=== PATIENT | female | born 1955 | race African-American/Black ===

== ENCOUNTER 2017-08-20 11:50 | Outpatient (CLI) | payer BC | END 2017-08-20 11:51 | disposition home or self-care (01) | LOC: BICRAD 11:50 | PROVIDERS: ATTEND Internal Medicine | DX: J45.909 Unspecified asthma, uncomplicated (principal); Z72.0 Tobacco use | CPT/HCPCS: 71046 ==

== ENCOUNTER 2017-12-05 08:37 | Outpatient (CLI) | payer BC | END 2017-12-05 08:38 | disposition home or self-care (01) | LOC: CP 08:37 | PROVIDERS: ATTEND Internal Medicine Critical Care Medicine | DX: J44.9 Chronic obstructive pulmonary disease, unspecified (principal) | CPT/HCPCS: 94010; 94727; 94729 ==

== ENCOUNTER 2018-02-11 13:47 | Outpatient (CLI) | payer OTHER | END 2018-02-11 13:48 | disposition home or self-care (01) | LOC: BICRAD 13:47 | PROVIDERS: ATTEND Internal Medicine | DX: Z02.71 Encounter for disability determination (principal); M19.012 Primary osteoarthritis, left shoulder; M17.12 Unilateral primary osteoarthritis, left knee ==

== ENCOUNTER 2019-06-03 11:39 | Outpatient (CLI) | payer BC ==
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
== END 2019-06-03 11:40 | disposition home or self-care (01) ==
LOC: BICRAD 11:39
PROVIDERS: ATTEND Internal Medicine
DX: M54.2 Cervicalgia (principal); M46.92 Unspecified inflammatory spondylopathy, cervical region
CPT/HCPCS: 72040

== ENCOUNTER 2019-12-08 16:42 | Emergency (ER) | payer MEDICARE ==
[2019-12-08 17:45] LABS: #Basophils 0.1 thou/uL (0.0-0.2); #Eosinphils 0.1 thou/uL (0.0-0.7); #Lymphocytes 2.8 thou/uL (1.20-3.40); #Monocytes 0.8 thou/uL (0.11-0.59); #Neutrophils 8.4 thou/uL (1.40-6.50); %Basophils 0.6 % (0.0-1.0); %Eosinophils 0.5 % (0.0-10.0); %Monocytes 6.3 % (0.0-10.0); %Neutrophils 69.6 % (42.0-75.0); Hemoglobin 13.4 g/dL (12.0-16.0); Mean Corpuscular HGB CONC 30.7 g/dL (32.0-36.0); Mean Corpuscular Hemoglobin 27.8 pg (27.0-31.0); Mean Corpuscular Volume 90.5 fL (78.0-98.0); Platelet Count 322 thou/uL (130-400); RBC Distribution Width 14.2 % (11.5-14.5); Red Blood Cell (RBC) Count 4.82 mill/uL (4.20-5.40); White Blood Cell (WBC) Count 12.1 thou/uL (4.8-10.8)
[2019-12-08 18:08] LABS: ALT (SGPT) 40 U/L (8-55); AST (SGOT) 21 U/L (5-34); Albumin 4.1 g/dL (3.4-4.8); Alkaline Phosphatase 129 U/L (40-110); Anion Gap 21 mmol/L (10-20); BUN (Urea Nitrogen) 11 mg/dL (9.8-20.1); Bilirubin, Total 0.2 mg/dL (0.2-1.2); Calc. Creatinine Clearance 0 mL/min (70-130); Calcium 9.6 mg/dL (7.8-10.44); Carbon Dioxide 22 mmol/L (23-31); Chloride 92 mmol/L (98-107); Estimated GFR-MDRD 41; Globulin 2.8 g/dL (2.4-3.5); Lipase 50 U/L (8-78); Potassium 4.6 mmol/L (3.5-5.1); Protein, Total 6.9 g/dL (6.0-8.3); Sodium 130 mmol/L (136-145)
[2019-12-08 18:18] LABS: Glucose 728 mg/dL (80-115)
[2019-12-08 18:29] LABS: Bilirubin Negative (Negative); Blood, Urine Negative (Negative); Clarity Clear (Clear); Glucose, Urine (Dipstick) Greater than 1000 mg/dL (Negative); Leukocyte Negative Leu/uL (Negative); Nitrite Negative (Negative); Protein, Urine (Dipstick) Negative (Neg-Trace); Urobilinogen Normal mg/dL (Less than 2)
[2019-12-08] MEDS ORDERED: Insulin Regular 300 UNITS/3 ML VIAL ONE (18:34)
== END 2019-12-08 22:41 | disposition home or self-care (01) ==
LOC: ERS 16:42
DX: E11.65 Type 2 diabetes mellitus with hyperglycemia (principal); E78.00 Pure hypercholesterolemia, unspecified; I10 Essential (primary) hypertension; G89.29 Other chronic pain; F31.9 Bipolar disorder, unspecified; F17.210 Nicotine dependence, cigarettes, uncomplicated; Z79.899 Other long term (current) drug therapy
CPT/HCPCS: 36415; 36416; 80053; 80061; 81003; 82010; 82043; 83036; 83690; 83735; 84443; 85025; 96361; 96374; J1815